=== PATIENT | female | born 1955 | race Caucasian/White ===

== ENCOUNTER 2021-12-30 02:54 | Emergency (ER) | payer BC ==
[2021-12-30] MEDS ORDERED: Nitrofurantoin Monohydrate/Macrocrystalline 100 MG Cap PO STA (03:50)
[2021-12-30] MEDS ORDERED: cefTRIAXone 1 GM Vial IM STA (03:55)
[2021-12-30] MEDS ORDERED: Levofloxacin 750 MG Tab PO STA (04:11)
== END 2021-12-30 04:20 | disposition home or self-care (01) ==
LOC: JD.ED 02:54
DX: N39.0 Urinary tract infection, site not specified (principal); Z88.8 Allergy status to other drugs, medicaments and biological substances; Z86.16 Personal history of COVID-19
CPT/HCPCS: 81001; 87086; 87088; 87186; 99283; A9270